=== PATIENT | female | born 1970 | race Caucasian/White ===

== ENCOUNTER 2019-04-01 02:34 | Outpatient (CLI) | payer OTHER, SELFPAY ==
[2019-04-01 09:54] LABS: Anion Gap 10.6 mmol/L (3-11); BUN 14 mg/dL (7-18); CO2 28.4 mmol/L (21.0-32.0); CREATININE 0.84 mg/dL (0.55-1.02); Calcium 8.9 mg/dL (8.5-10.1); Chloride 99 mmol/L (98-107); Cholesterol 218 mg/dL (50-200); Glucose 109 mg/dL (70-100); HDL Cholesterol 46 mg/dL (40-60); LDL CHOLESTEROL 138 mg/dL (<100); Potassium 4.1 mmol/L (3.5-5.1); Sodium 138 mmol/L (136-145); Triglyceride 249 mg/dL (30-150)
== END 2019-04-01 02:54 ==
PROVIDERS: PCP Nurse Practitioner Family; Visit Provider Nurse Practitioner Family
DX: Z00.00 Encounter for general adult medical examination without abnormal findings (principal); Z13.228 Encounter for screening for other metabolic disorders; Z13.220 Encounter for screening for lipoid disorders
CPT/HCPCS: 36415; 80048; 80061; 83721

== ENCOUNTER 2019-04-07 11:00 | Outpatient (REF) | payer OTHER, SELFPAY ==
[2019-04-07 13:39] LABS: TSH (W/Ref FT4) 2.69 uIU/mL (0.358-3.74); Vitamin B12 733 pg/mL (193-986)
[2019-04-08 14:44] LABS: Iron 68 ug/dL (50-175); Total Iron Binding Capacity 389 ug/dL (250-450); Transferrin Sat 17 % (15-50)
[2019-04-09 06:38] LABS: Vitamin D 25 Total 23.4 ng/ml (30-100)
== END 2019-04-07 11:20 ==
LOC: NCHCN 11:00
PROVIDERS: PCP Nurse Practitioner Family; Visit Provider Nurse Practitioner Family
DX: R53.83 Other fatigue (principal); L65.9 Nonscarring hair loss, unspecified
CPT/HCPCS: 82306; 82607; 83036; 83540; 83550; 84443

== ENCOUNTER 2021-04-28 20:17 | Outpatient (REF) | payer OTHER, SELFPAY ==
[2021-04-28 13:59] LABS: ESR 9 mm/hr (0-20)
[2021-04-28 21:20] LABS: Rheumatoid Factor <8.6 IU/mL (<12.0)
== END 2021-04-28 20:18 | disposition home or self-care (01) ==
LOC: NCHCN 20:17
PROVIDERS: PCP Nurse Practitioner Family; Visit Provider Nurse Practitioner Family
DX: M79.641 Pain in right hand (principal); M79.671 Pain in right foot
CPT/HCPCS: 85652; 86431

== ENCOUNTER 2021-05-22 08:42 | Outpatient (REF) | payer OTHER, SELFPAY ==
[2021-05-22 15:55] LABS: Hemoglobin A1C 6.2 % (<5.7)
[2021-05-22 16:06] LABS: Anion Gap 11.2 mmol/L (3-11); BUN 12 mg/dL (7-18); CO2 25.8 mmol/L (21.0-32.0); CREATININE 0.9 mg/dL (0.55-1.02); Calcium 8.9 mg/dL (8.5-10.1); Calculated LDL 156 mg/dL (<100); Chloride 104 mmol/L (98-107); Cholesterol 243 mg/dL (<200); Glucose 119 mg/dL (74-106); HDL Cholesterol 44 mg/dL (40-60); Potassium 4.4 mmol/L (3.5-5.1); Sodium 141 mmol/L (136-145); Triglyceride 216 mg/dL (<150)
== END 2021-05-22 08:43 | disposition home or self-care (01) ==
LOC: NCHCN 08:42
PROVIDERS: PCP Nurse Practitioner Family; Visit Provider Nurse Practitioner Family
DX: Z00.00 Encounter for general adult medical examination without abnormal findings (principal); Z13.220 Encounter for screening for lipoid disorders; R73.03 Prediabetes
CPT/HCPCS: 80048; 80061; 83036

== ENCOUNTER 2023-05-16 17:25 | Outpatient (REF) | payer OTHER, SELFPAY ==
[2023-05-16 20:27] LABS: Hemoglobin A1C 6.6 % (<5.7)
[2023-05-16 20:35] LABS: Calculated LDL 152 mg/dL (<100); Cholesterol 264 mg/dL (<200); HDL Cholesterol 41 mg/dL (40-60); TSH (W/Ref FT4) 1.68 uIU/mL (0.36-3.74); Triglyceride 359 mg/dL (<150)
[2023-05-16 20:46] LABS: Vitamin D 25 Total 26.9 ng/mL (30-100)
[2023-05-17 18:28] LABS: ALT 30 U/L (14-59); AST 18 U/L (15-37); Albumin 4.2 g/dL (3.4-5.0); Alkaline Phosphatase 77 U/L (46-116); BUN 17 mg/dL (7-18); Bilirubin, Total 0.3 mg/dL (0.2-1.0); CREATININE 0.9 mg/dL (0.55-1.02); Calcium 9.1 mg/dL (8.5-10.1); Chloride 101 mmol/L (98-107); Glucose 182 mg/dL (74-106); Potassium 4.1 mmol/L (3.5-5.1); Sodium 137 mmol/L (136-145); Total Protein 7.1 g/dL (6.4-8.2)
== END 2023-05-16 17:26 | disposition home or self-care (01) ==
LOC: NCHCN 17:25
PROVIDERS: PCP Nurse Practitioner Family; Visit Provider Nurse Practitioner Family
DX: Z00.00 Encounter for general adult medical examination without abnormal findings (principal); E78.2 Mixed hyperlipidemia; R73.03 Prediabetes
CPT/HCPCS: 80053; 80061; 82306; 83036; 84443

== ENCOUNTER 2023-06-06 16:58 | Outpatient (REF) | payer OTHER, SELFPAY ==
--- NOTE | 2023-06-06 10:00 | PAPFT_PTH ---
PATIENT: Arabella Machado LOC: [facility]#:[id number] AGE/SX: 53/F ROOM: RE06/06/[address]: Margoth Walters : 1970 BED: DIS: 06/06/2023 SPEC #: [id number] RECD: 06/06/23 18:35 STATUS: DASH REQ #: [id number] ADRIANA: 06/06/23 10:[address]: Margoth Walters DEPT: [facility] Cytology RECD BY: Jyoti Gandhi ENTERED: 06/06/23 18:36 SP TYPE: PAPFT OTHR DR: Isabelle Steward Tissues: 1 - CX/ENDOCX FOR PAP SMEARS Procedures: PAP THIN PREP/[facility] Screening HPV DNA PROBE Comments: [id number] (HPV 16 & 18/45)
[2023-06-06 18:23] LABS: Hemoglobin A1C 6.4 % (<5.7)
== END 2023-06-06 16:59 | disposition home or self-care (01) ==
LOC: NCHCN 16:58
PROVIDERS: PCP Nurse Practitioner Family; Visit Provider Nurse Practitioner Family
DX: Z01.419 Encounter for gynecological examination (general) (routine) without abnormal findings (principal); Z00.00 Encounter for general adult medical examination without abnormal findings
CPT/HCPCS: 88142; 83036; 87624

== ENCOUNTER → 2023-06-19 01:21 | Outpatient (CLI) | payer OTHER, SELFPAY ==
--- NOTE | 2023-06-19 08:45 | DI.MAMMO_ITS ---
Exam(s) MAMMO SCREENING EXAM: MAMMO SCREENING CLINICAL HISTORY: BASELINE SCREENING, [facility], Z00.00 TECHNIQUE: Mammograms were interpreted according to the usual protocol including computer analysis w [employer] CAD system, tomosynthesis and C-view imaging. COMPARISON: No exams were available for comparison. Baseline examination. FINDINGS: The breasts are composed of scattered fibroglandular densities, Breast Density category B. No suspicious masses or suspicious microcalcifications are seen. No skin thickening or abnormal axillary lymph nodes are seen. IMPRESSION: BI-RADS Category 1, Negative mammogram Yearly screening mammography is recommended. Breast Density - Category B, scattered fibroglandular densities. A negative radiographic report should not delay biopsy if a dominant or clinically suspicious mass is present. Up to ten percent of cancers are not identified on mammography. A negative report may reinforce clinical impression. Adenosis and dense breasts may obscure an underlying neoplasm. False positive reports average 6 to 10%. Patient will receive a letter notifying them of these results.
== END ==
PROVIDERS: PCP Nurse Practitioner Family; Visit Provider Nurse Practitioner Family
DX: Z12.31 Encounter for screening mammogram for malignant neoplasm of breast (principal)
CPT/HCPCS: 77063; 77067

== ENCOUNTER 2023-07-18 14:30 | Outpatient (REF) | payer OTHER, SELFPAY ==
--- NOTE | 2023-07-18 10:30 | SKI_PTH ---
PATIENT: Arabella Machado LOC: [facility] #:[id number] AGE/SX: 53/F ROOM: RE07/18/[address]: Margoth Walters : 1970 BED: DIS: 07/18/2023 SPEC #: [id number] RECD: 07/18/23 18:36 STATUS: DASH REQ #: [id number] ADRIANA: 07/18/23 10:[address]: Margoth Walters DEPT: Surgical Specimen RECD BY: Jyoti Gandhi Tissues: 1 - SKIN BIOPSY(SHAVE/PUNCH) Procedures: SKIN LEVEL 4 Comments: [id number]
== END 2023-07-18 14:31 | disposition home or self-care (01) ==
LOC: NCHCN 14:30
PROVIDERS: PCP Nurse Practitioner Family; Visit Provider Nurse Practitioner Family
DX: D28.0 Benign neoplasm of vulva
CPT/HCPCS: 88305

== ENCOUNTER 2023-12-27 08:45 | Outpatient (REF) | payer OTHER, SELFPAY ==
[2023-12-27 16:48] LABS: Hemoglobin A1C 6.4 % (<5.7)
[2023-12-27 17:08] LABS: Vitamin D 25 Total 34.6 ng/mL (30-100)
== END 2023-12-27 08:46 | disposition home or self-care (01) ==
LOC: NCHCN 08:45
PROVIDERS: PCP Nurse Practitioner Family; Visit Provider Nurse Practitioner Family
DX: E11.9 Type 2 diabetes mellitus without complications (principal); E55.9 Vitamin D deficiency, unspecified
CPT/HCPCS: 82306; 83036

== ENCOUNTER 2024-03-30 11:43 | Outpatient (REF) | payer OTHER, SELFPAY ==
[2024-03-31 09:19] LABS: Hepatitis C Ab w Rflx HCV PCR Negative (Negative)
[2024-03-31 09:25] LABS: HIV-1/2 Ag & Ab Screen Negative (Negative)
== END 2024-03-30 11:44 | disposition home or self-care (01) ==
LOC: NCHCN 11:43
PROVIDERS: PCP Nurse Practitioner Family; Visit Provider Nurse Practitioner Family
DX: Z00.00 Encounter for general adult medical examination without abnormal findings (principal)
CPT/HCPCS: 86803; 87389

== ENCOUNTER 2024-06-25 10:18 | Outpatient (CLI) | payer OTHER, SELFPAY ==
--- NOTE | 2024-06-25 10:38 | DI.RAD_ITS ---
Exam(s) XR LUMBAR SPINE COMPLETE EXAM: XR LUMBAR SPINE COMPLETE CLINICAL HISTORY: back pain mid lumbar, M54.9. TECHNIQUE: 2D digital imaging was performed of the lumbar spine. Five images were obtained. AP, la teral, right oblique, left oblique and L5-S1 spot views were obtained. COMPARISON: CT ABD PELVIS WITH CONTRAST from 06/30/2015 FINDINGS: BONES: No fracture or destructive lesion. Osteophytes are seen at multiple levels of the lumbar spine . There are mild degenerative changes seen at the facets at L4-5 and L5-S1. There is again seen a k[place] island in the left iliac. DISKS: There is disc space narrowing at T12-L1 and L1-L2. ALIGNMENT: Lumbar spinal alignment is within normal limits. No spondylolysis or spondylolisthesis. SOFT TISSUE: Normal. IMPRESSION: Cusa-sb-rcwljeby degenerative changes in the lumbar spine. DATA REPOSITORY: RADIATION DOSE DELIVERED:
== END 2024-06-25 10:38 ==
LOC: DI 10:19
PROVIDERS: PCP Nurse Practitioner Family; Visit Provider Physician Assistant
DX: M51.36 Other intervertebral disc degeneration, lumbar region (principal)
CPT/HCPCS: 72110

== ENCOUNTER 2024-07-10 15:57 | Outpatient (REF) | payer OTHER, SELFPAY ==
--- NOTE | 2024-07-10 11:30 | PAPFT_PTH ---
PATIENT: Arabella Machado LOC: [facility]#:[id number] AGE/SX: 54/F ROOM: RE07/10/[address]: Margoth Walters : 1970 BED: DIS: 07/10/2024 SPEC #: [id number] RECD: 07/10/24 17:43 STATUS: DASH REQ #: [id number] ADRIANA: 07/10/24 11:[address]: Margoth Walters DEPT: [facility] Cytology RECD BY: Jyoti Gandhi Tissues: 1 - CX/ENDOCX FOR PAP SMEARS Procedures: PAP THIN PREP/[facility] Screening HPV DNA PROBE Comments: [id number] (HPV 16 7 18/45)
[2024-07-10 16:40] LABS: Hemoglobin A1C 6.9 % (<5.7)
[2024-07-10 16:41] LABS: ALT 43 U/L (14-59); AST 23 U/L (15-37); Albumin 4.2 g/dL (3.4-5.0); Alkaline Phosphatase 77 U/L (46-116); Anion Gap 10.1 mmol/L (3-11); BUN 14 mg/dL (7-18); Bilirubin, Total 0.52 mg/dL (0.2-1.0); CO2 25.9 mmol/L (21.0-32.0); CREATININE 0.9 mg/dL (0.55-1.02); Calcium 9.2 mg/dL (8.5-10.1); Calculated LDL 70 mg/dL (<100); Chloride 103 mmol/L (98-107); Cholesterol 171 mg/dL (<200); Estimated GFR 76.92 (mL/min/1.73m2); Glucose 146 mg/dL (74-106); HDL Cholesterol 47 mg/dL (40-60); Sodium 139 mmol/L (136-145); Total Protein 7.4 g/dL (6.4-8.2); Triglyceride 270 mg/dL (<150)
== END 2024-07-10 15:58 | disposition home or self-care (01) ==
LOC: NCHCN 15:57
PROVIDERS: PCP Nurse Practitioner Family; Visit Provider Nurse Practitioner Family
DX: E11.9 Type 2 diabetes mellitus without complications (principal); E78.5 Hyperlipidemia, unspecified
CPT/HCPCS: 80053; 80061; 88142; 83036; 87624

== ENCOUNTER 2024-07-20 01:09 | Outpatient (CLI) | payer OTHER, SELFPAY ==
--- NOTE | 2024-07-20 09:00 | DI.MRI_ITS ---
Exam(s) MR LUMBAR SPINE WO EXAM: MR LUMBAR SPINE WO CLINICAL HISTORY: evaluate pathology,acute low back pain,m54.50. TECHNIQUE: Multiplanar multisequence MRI of the Lumbar spine was performed. COMPARISON: CR XR LUMBAR SPINE COMPLETE from 06/25/2024 FINDINGS: Bones: The last intervertebral disc space is designated the L5/S1 level for the numbering purpose of this ex amination. The vertebral body heights are well maintained. Alignment: Unremarkable. The marrow signal characteristics are unremarkable. Cord: The conus tip ends at the T12 level. It is of normal size and signal intensity. T12-L1: No focal disc herniation is present. No central spinal canal stenosis.No neural foraminal st enosis. L1-2: No focal disc herniation is present. No central spinal canal stenosis.No neural foraminal sten osis. L2-3: No focal disc herniation is present. No central spinal canal stenosis.No neural foraminal edson nosis. L3-4: No focal disc herniation is present. No central spinal canal stenosis.No neural foraminal edson nosis. L4-5:Mild loss of disc height. No focal disc herniation is present. Mild facet degenerative changes . No central spinal canal stenosis.No neural foraminal stenosis. L5-S1: No focal disc herniation is present. No central spinal canal stenosis.No neural foraminal st enosis. The visualized SI joints and sacrum are unremarkable. Soft tissues: The paraspinal soft tissues are unremarkable. IMPRESSION: Mild loss of disc height at L4-5. Mild facet degenerative changes at L4-5. No evidence of significa nt spinal stenosis or neuroforaminal narrowing. DATA REPOSITORY:
== END 2024-07-20 01:29 ==
LOC: DI 01:09
PROVIDERS: PCP Nurse Practitioner Family; Visit Provider Nurse Practitioner Family
DX: M51.36 Other intervertebral disc degeneration, lumbar region (principal)
CPT/HCPCS: 72148

== ENCOUNTER 2025-02-26 11:34 | Outpatient (REF) | payer OTHER, SELFPAY ==
[2025-02-26 16:08] LABS: COMMENT (LAB VIEW ONLY) 99.16 mg/dL; Microalb ug/mg Crea 5.5 ug/mg Cr
== END 2025-02-26 11:35 | disposition home or self-care (01) ==
LOC: NCHCN 11:34
PROVIDERS: PCP Nurse Practitioner Family; Visit Provider Nurse Practitioner Family
DX: E11.9 Type 2 diabetes mellitus without complications (principal)
CPT/HCPCS: 82043; 82570

== ENCOUNTER 2025-07-30 10:59 | Outpatient (REF) | payer OTHER, SELFPAY ==
--- NOTE | 2025-07-30 08:30 | PAPFT_PTH ---
PATIENT: Arabella Machado LOC: [facility]#:[id number] AGE/SX: 55/F ROOM: RE07/30/[address]: Margoth Walters : 1970 BED: DIS: 07/30/2025 SPEC #: [id number] RECD: 07/30/25 18:35 STATUS: DASH REQ #: [id number] ADRIANA: 07/30/25 08:[address]: Margoth Walters DEPT: [facility] Cytology RECD BY: Jyoti Gandhi Tissues: 1 - CX/ENDOCX FOR PAP SMEARS Procedures: PAP THIN PREP/[facility] Screening HPV DNA PROBE Comments: [id number] (HPV 16 & 18/45)
== END 2025-07-30 11:00 | disposition home or self-care (01) ==
LOC: NCHCN 10:59
PROVIDERS: PCP Nurse Practitioner Family; Visit Provider Nurse Practitioner Family
DX: Z12.4 Encounter for screening for malignant neoplasm of cervix (principal)
CPT/HCPCS: 88142; 87624

== ENCOUNTER 2025-08-27 05:03 | Outpatient (CLI) | payer OTHER, SELFPAY ==
--- NOTE | 2025-08-27 | DI.MAMMO_ITS ---
Exam(s) MAMMO SCREENING EXAM: MAMMO SCREENING CLINICAL HISTORY: SCREENING, Z12.31 TECHNIQUE: Mammograms were interpreted according to the usual protocol including computer analysis with CAD system, tomosynthesis and C-view imaging. COMPARISON: 2022 FINDINGS: The breasts are composed of scattered fibroglandular densities, Breast Density category B. No suspicious masses or suspicious microcalcifications are seen. No skin thickening or abnormal axillary lymph nodes are seen. There has been no significant change from prior exams. IMPRESSION: BI-RADS Category 1, Negative mammogram Yearly screening mammography is recommended. Breast Density - Category B - There are scattered areas of fibroglandular density. Breast density Category C or D implies that the patient has dense breast tissue. Dense breast tissue can make it harder to find cancer on a mammogram. Dense breast tissue is also associated with an increased risk of breast cancer. This information about the result of the mammogram report was provided to the patient to raise their awareness. Use this report when you speak with the patient about their risks for breast cancer, which includes their family history. At that time, you may recommend additional screening tests (Ultrasound or MRI) as these tests may add significant information. A negative radiographic report should not delay biopsy if a dominant or clinically suspicious mass is present. Up to ten percent of cancers are not identified on mammography. A negative report may reinforce clinical impression. Adenosis and dense breasts may obscure an underlying neoplasm. False positive reports average 6 to 10%. Patient will receive a letter notifying them of these results.
== END 2025-08-27 05:23 ==
PROVIDERS: PCP Nurse Practitioner Family; Visit Provider Nurse Practitioner Family
DX: Z12.31 Encounter for screening mammogram for malignant neoplasm of breast (principal); R92.323 Mammographic fibroglandular density, bilateral breasts
CPT/HCPCS: 77063; 77067